=== PATIENT | male | born 1990 | race Caucasian/White ===

== ENCOUNTER 2017-07-25 15:10 | Emergency (ER) | payer MEDICAID ==
[2013-10-04 16:17] VITALS: BMI 28.5
[~2017-07-25 15:10] MED LIST: CIPRO500 MG PO; NORCO 10/325 TA1 TA1 PO
== END 2017-07-25 16:44 | disposition home or self-care (01) ==
LOC: D.ER 15:10
DX: L02.31 Cutaneous abscess of buttock (principal); F17.200 Nicotine dependence, unspecified, uncomplicated